=== PATIENT | male | born 1965 | race Caucasian/White ===

== ENCOUNTER 2017-06-17 13:04 | Inpatient (IN) ==
[2017-06-17] MEDS ORDERED: ADENOSINE 6 MG/2 ML VIAL ONE ×2 (13:18→13:26)
[2017-06-17] MEDS ORDERED: ADENOSINE 6 MG/2 ML VIAL IV STA ×2 (13:26→13:28)
[2017-06-17] MEDS ORDERED: DILTIAZEM 100 MG VIAL.ADD IV ONE (13:31)
[2017-06-17] MEDS: DILTIAZEM INJ 100 MG in SODIUM CHLORIDE 0.9% 100 ML IV SCH ×2 (13:31→23:37)
[2017-06-17] MEDS ORDERED: SODIUM CHLORIDE 0.9% 100 ML IV ONE (13:31)
[2017-06-17] MEDS ORDERED: DILTIAZEM 50 MG/10 ML VIAL IV ONE (13:31)
--- NOTE | 2017-06-17 13:42 | Emergency Department Note ---
Sergio Yoon Rolonda, am scribing for, and in the presence of, Francia Quiñones DO 13: 38. IIshmael Debra, DO, personally performed the services described in this documentation, ascribed by Danny Hill in my presence, and it is both accurate and complete [id number] . Arrival - Arrival Chief Complaint: Dizziness Stated Complaint: Dizziness ED Nursing Triage Note: pt went to the clinic at [facility] for a steriod shot for a cold that he has. pt had strep the first of the week. pt had an abnormal ekg done at the clinic. pt c/o dizziness when turning head. Mode of Arrival: Stretcher Limitations: No Limitations Source: Patient, Old Records Reviewed, RN Notes Reviewed - History of Present Illness HPI Narrative: Pt is a 52 y/o male who was presents to the ED via EMS for further evaluation of chest pain with an onset of hours ago. Pt has a PMHx of HTN. Pt states that he was Dx with streptococcal and bronchitis and he went to get Abx shot at the doctor. He states that he went again today as well but was unable to see the doctor. Pt states he was walking [place] the barn [place] his [place] and he had to stop in order to catch his breath. Pt states that he "felt like there was a knot in his chest". He confirms that he is currently taking Zoloft, Prilosec, and Metformin. During exam, pt's HR was 153. No other complaint/pain in ED. Onset (ago): hour(s) Consistency: constant Severity: moderate Severity scale (1-10): 4 Allergies/Adverse Reactions: Allergies Allergy/AdvReac Type Severity Reaction Status Date / Time No Known Allergies Allergy Unverified 06/17/17 13:13 Review of System - Review of System 12 point system: reviewed and no additional remarkable complaints except as stated - Review of System Constitutional: Absent: chills, fever Eyes: Absent: discharge Head/Ears/Nose/Throat: Absent: earache Respiratory: Absent: cough Cardiovascular: Present: chest pain Gastrointestinal: Absent: abdominal pain, nausea Genitourinary male: Absent: dysuria Musculoskeletal: Absent: arm pain, back pain Skin: Absent: rash Neurological: Absent: headache Psychiatric: Absent: anxiety Endocrine: Absent: cold intolerance Hematological/Lymphatic: Absent: easy bleeding Allergic/Immunologic: Absent: facial swelling Medical,Surgical,& Family Hx - Medical History Cardio: History of: Hypertension Endocrine: History of: Diabetes Mellitus (NIDDM) Renal: History of: Renal Problems (one kidney) Genitourinary: History of: Kidney Stones - Social History Smoking Status: Smoker, status unknown Frequency of Alcohol Use: Occasionally Type of Drug Use: None Exam Vital Signs: Vital Signs Temperature 97.2 F L 06/17/17 13:08 Pulse Rate 154 H 06/17/17 13:08 Respiratory Rate 18 06/17/17 13:08 Blood Pressure 126/96 06/17/17 13:08 O2 Sat by Pulse Oximetry 97 06/17/17 13:08 - General General appearance: alert, in no apparent distress - Head Head exam: Present: atraumatic, normocephalic - Eye Eye exam: Present: PERRL, EOMI - ENT ENT exam: Present: mucous membranes moist. Absent: mucous membranes dry - Neck Neck exam: Present: full ROM. Absent: tenderness - Chest Chest inspection: Present: symmetric chest wall rise. Absent: tenderness - Respiratory Respiratory exam: Present: normal lung sounds bilaterally. Absent: wheezes - Cardiovascular Cardiovascular exam: Present: normal rhythm, tachycardia - Abdominal Exam Abdominal exam: Present: soft, normal bowel sounds, other (obese). Absent: tenderness - Extremities Exam Extremities exam: Present: full ROM. Absent: tenderness - Back Exam Back exam: Present: full ROM. Absent: tenderness - Neurological Exam Neurological exam: Present: alert, oriented X3, CN II-XII intact - Psychiatric Psychiatric exam: Present: normal affect, normal mood - Skin Skin exam: Present: warm, dry, intact, normal color. Absent: rash Course Course Narrative: Spoke with Dr. Awan who wishes for patient to be admitted and accepts patient to telemetry floor. Will be given 0.25 of digoxin and subcu Lovenox. Results - Labs CBC & BMP: 06/17/17 13:14 06/17/17 13:14 Lab Results: I have reviewed the patients labs Labs: Laboratory Tests 06/17/17 06/17/17 06/17/17 13:14 13:14 13:14 WBC 10.7 RBC 5.48 Hgb 15.9 Hct 45.4 MCV 82.8 L Plt Count 172 INR 1.0 PT Patient/Control Mix 10.7 Circ Anticoag PTT 28.5 Sodium 136 Potassium 3.4 L Chloride 101 Carbon Dioxide 25 BUN 23 H GFR Calculation 88 Glucose 388 H AST 24 Alkaline Phosphatase 118 H Albumin 3.1 L Globulin 4.9 H Albumin/Globulin Ratio 0.6 L - EKG EKG results: interpreted by ERMD EKG shows: tachycardia, sinus rhythm - Diagnostic Findings Procedure: Chest x-ray: report reviewed by me (1. No acute cardiopulmonary pathology with underlying granuloma change.) Disposition Clinical Impression: Atrial fibrillation and flutter Case discussed with: patient, patient's family Disposition: Still a Patient Condition: Stable Time of Disposition: 14:57
[2017-06-17] MEDS ORDERED: DILTIAZEM 50 MG/10 ML VIAL IV STA (13:45)
[2017-06-17 13:51] LABS: Basophils % 0.4 % (0.0-0.8); Eosinophils % 0.2 % (0.00-10.9); Hematocrit 45.4 VOL% (42.0-52.0); Hemoglobin 15.9 GM/DL (14.0-18.0); Immature Granulocytes % 0.6 %; Immature Granulocytes Absolute 0.06 #; Lymphocytes # 2.5 10*3/uL (1.4-4.0); Lymphocytes % 23.6 % (21.2-54.2); Mean Corpuscular Hemoglobin 29 PG (27-34); Mean Corpuscular Volume 82.8 FL (87-102); Mean Platelet Volume 11.5 FL (9.6-12.0); Monocytes # 0.7 10*3/uL (0.11-0.8); Monocytes % 6.8 % (1.7-12.7); Neutrophils # 7.4 10*3/uL (1.4-7.4); Neutrophils % 68.4 % (38.7-73.9); Platelet Count 172 T/CUMM (130-400); Red Blood Count 5.48 MC/CUMM (3.8-5.5); Red Cell Distribution Width 13.1 % (9.3-17.3); White Blood Count 10.7 T/CUMM (4-12)
[2017-06-17 13:58] LABS: PT Patient Result 10.7 SECS; Partial Thromboplastin Time 28.5 SECS (0-40)
[2017-06-17 14:04] LABS: Alanine Aminotransferase 37 U/L (16-61); Albumin 3.1 G/DL (3.4-5.0); Alkaline Phosphatase 118 U/L (45-117); Aspartate Amino Transferase 24 U/L (0-37); Blood Urea Nitrogen 23 MG/DL (7-18); Calcium 9.6 MG/DL (8.5-10.1); Glucose 388 MG/DL (74-106); Potassium 3.4 MMOL/L (3.5-5.1); Sodium 136 MMOL/L (136-145); Troponin I Only 0.028 NG/ML (0.00-0.045)
--- NOTE | 2017-06-17 14:12 | XRay Report ---
Exam: XR chest 1V portable Date: 06/17/2017 1:43 PM Indication: Tachycardia Comparison: None Technical: 06/17/2017 Findings: Cardiac pad superimposed exam. The heart is normal in size. There is a granuloma in the left lateral chest. No obvious infiltrate or effusion. The mediastinum is intact Impression: 1. No acute cardiopulmonary pathology with underlying granuloma change. PROCEDURE INTERPRETED AT [facility] DEPARTMENT OF RADIOLOGY Final Report Signed by: Dr. Evan Dalton
[2017-06-17] MEDS ORDERED: DIGOXIN 0.5 MG/2 ML AMP IV STA (14:46)
[2017-06-17] MEDS ORDERED: ENOXAPARIN 100 MG/ML SYRINGE SUBCUT STA (14:58)
[2017-06-17] MEDS ORDERED: ENOXAPARIN 100 MG/ML SYRINGE SUBCUT ONE (15:02)
[2017-06-17] MEDS ORDERED: MAGNESIUM SULF RIDER 2 GM in PREMIX 1 EACH IV PRN (15:03)
[2017-06-17] MEDS ORDERED: DIGOXIN 0.5 MG/2 ML AMP ONE (15:03)
[2017-06-17] MEDS ORDERED: ZALEPLON 5 MG CAPSULE PO PRN (15:03)
[2017-06-17] MEDS ORDERED: MORPHINE 2 MG/1 ML SYRINGE IV PRN (15:03)
[2017-06-17] MEDS ORDERED: ACETAMINOPHEN 325 MG TABLET PO PRN (15:03)
[2017-06-17] MEDS ORDERED: ONDANSETRON 4 MG/2 ML VIAL IV PRN (15:03)
[2017-06-17] MEDS ORDERED: MAGNESIUM SULF RIDER 4 GM in PREMIX 1 EACH IV PRN (15:03)
[2017-06-17] MEDS ORDERED: ENOXAPARIN 40 MG/0.4 ML SYRINGE SUBCUT SCH (15:30)
[2017-06-17 16:40] LABS: Basophils % 0.3 % (0.0-0.8); Eosinophils % 0.3 % (0.00-10.9); Hematocrit 44.1 VOL% (42.0-52.0); Hemoglobin 15.5 GM/DL (14.0-18.0); Immature Granulocytes % 0.8 %; Immature Granulocytes Absolute 0.08 #; Lymphocytes # 2.4 10*3/uL (1.4-4.0); Lymphocytes % 25.6 % (21.2-54.2); Mean Corpuscular HGB Conc 35.1 GM/DL (32-36); Mean Corpuscular Hemoglobin 29 PG (27-34); Mean Corpuscular Volume 83.1 FL (87-102); Mean Platelet Volume 11.1 FL (9.6-12.0); Monocytes # 0.9 10*3/uL (0.11-0.8); Platelet Count 162 T/CUMM (130-400); Red Blood Count 5.31 MC/CUMM (3.8-5.5); Red Cell Distribution Width 13.3 % (9.3-17.3); White Blood Count 9.4 T/CUMM (4-12)
[2017-06-17] MEDS: SODIUM CHLORIDE 0.9% 1,000 ML IV SCH (16:54)
[2017-06-17 17:06] LABS: Troponin I Only 0.022 NG/ML (0.00-0.045)
[2017-06-17 17:13] LABS: Albumin 3.1 G/DL (3.4-5.0); Bilirubin,Total 0.4 MG/DL (0.2-1.0); Calcium 8.6 MG/DL (8.5-10.1); Magnesium 1.7 MG/DL (1.8-2.4); Osmolality,Calculated 286.8 MOS/KG (273-304); Potassium 3.6 MMOL/L (3.5-5.1); Thyroid Stimulating Hormone 1.86 uIU/ml (0.358-3.74); Total Protein 6.8 G/DL (6.4-8.3)
[2017-06-17] MEDS ORDERED: DIGOXIN 0.5 MG/2 ML AMP IV ONE (18:22)
[2017-06-17 18:24] LABS: Troponin I Only 0.018 NG/ML (0.00-0.045)
[2017-06-17] MEDS ORDERED: MAGNESIUM SULF RIDER 2 GM in PREMIX 1 EACH IV ONE (19:57)
--- NOTE | 2017-06-17 20:04 | Cardiology History & Physical ---
Assessment and Plan (1) Atrial fibrillation and flutter Status: Acute Current Visit: Yes (2) Hypertension Status: Chronic Current Visit: Yes (3) Hyperlipidemia Status: Chronic Current Visit: Yes (4) Diabetes mellitus Status: Chronic Current Visit: Yes History of Present Illness Chief complaint: Arrhythmia History of present illness: Radiology Practitioner Assistant: None Mr. Hernandez is a 52 year old male without a prior cardiac history, with risk factors significant for hypertension, hyperlipidemia, diabetes mellitus, family history of premature coronary artery disease, and tobacco use. The patient has been ill for approximately 1 week with "an upper respiratory infection", strep throat, cough productive of green sputum. He went to primary care provider on Monday (6 days ago) and received a steroid shot in addition to Zithromax. He went today to get a "boost" and was discovered to be extremely tachycardic, and was referred to the emergency room. He did not have awareness of tachycardia or palpitations. He has had some dyspnea this week. He denies any chest discomfort, lower extremity edema, orthopnea, paroxysmal nocturnal dyspnea. He has no history of arrhythmias. He does have a history of kidney stones. He does not have any recent melena, bright red blood per rectum, although he considers himself a "free bleeder". He has had some chills at home. He has been diagnosed with atrial fibrillation per ECG. He continues to be tachycardic despite a Cardizem drip. He has temporary reduction in his heart rate with vagal maneuvers and carotid massage during my exam. However, his tachycardia quickly rebounds. He has been a previous 2 pack a day smoker and has been working on "quitting", and was down to at least one pack. He has not smoked in 2 days because he has been too short of breath to smoke. Impression and plan: 1. Atrial fibrillation with rapid ventricular response-this really may be more of an atrial flutter and it has been difficult to control. I am going to add beta-za and we have been giving him digoxin. We may need to consider JERI and cardioversion if we cannot control him. He is currently asymptomatic and hemodynamically stable. We are going to anticoagulate him as well. 2. Hypertension-I am going to hold his ARB in favor of using rate controlling agents. 3. Diabetes mellitus-chronic. 4. Hyperlipidemia-chronic. Home Medications Medication Instructions Recorded Confirmed Type Atenolol 25 mg PO DAILY 06/17/17 06/17/17 History Metformin HCl 1,000 mg PO BID 06/17/17 06/17/17 History Olmesartan Medoxomil [Benicar] 40 mg PO DAILY 06/17/17 06/17/17 History Omeprazole Magnesium [Prilosec Otc] 20 mg PO DAILY 06/17/17 06/17/17 History Sertraline [Zoloft] 75 mg PO DAILY 06/17/17 06/17/17 History Allergies Allergy/AdvReac Type Severity Reaction Status Date / Time No Known Allergies Allergy Unverified 06/17/17 13:13 12 point system: reviewed and no additional remarkable complaints except as stated Medical,Surgical,& Family Hx - Medical History Cardio: History of: Hypertension Endocrine: History of: Diabetes Mellitus (NIDDM), Dyslipidemia Renal: History of: Renal Problems (one kidney) Genitourinary: History of: Kidney Stones - Social History Smoking Status: Current every day smoker Frequency of Alcohol Use: Frequently Type of Drug Use: None Marital Status: Lives With:: Spouse Functional capacity: independent ambulation Cardiology Physical Exam - Constitutional Vitals: Vital Signs Temp Pulse Resp BP Pulse Ox 97.8 F 158 H 20 142/94 99 06/17/17 15:38 06/17/17 18:34 06/17/17 15:38 06/17/17 16:52 06/17/17 15:38 Intake and Output 06/17/17 06/17/17 06/17/17 07:59 15:59 23:59 Intake Total 520 / 520 Balance 520 / 520 Intake: IV Cardizem Inj 100 mg In Ns 100 ml @ 5 MG/HR 5 mls/ hr IV TITRATE JANIE Rx#: [id number] Intake - Additional IV 500 / 500 Volume (mLs) Left Forearm 500 / 500 Other: Weight 113.398 kg Patient Weight 06/17/17 23:59 Weight 113.398 kg Exam: General appearance: normal weight, no acute distress - Head Head exam: Present: normal inspection, normocephalic, atraumatic. Absent: hematoma, laceration - Eye Eye exam: Present: EOMI. Absent: conjunctival injection, nystagmus, periorbital swelling, scleral icterus, laceration to eyelids Pupils: Present: PERRL. Absent: constricted, dilated, fixed, irregular, unequal - ENT ENT exam: Present: normal exam, normal external ear exam - Neck Neck exam: Present: normal inspection. Absent: lymphadenopathy, meningismus, tenderness, thyromegaly - Respiratory Respiratory exam: Present: clear to auscultation bilaterally. Absent: accessory muscle use, chest wall tenderness - Cardiovascular Cardiovascular exam: Present: Tachycardic with an irregularly irregular rate and rhythm. Absent: carotid bruit, gallop, JVD, rubs - GI/Abdominal GI/Abdominal exam: Present: normal bowel sounds, soft. Absent: distended, firm , guarding, hernia, mass, tenderness, rebound. - Extremities Exam Extremities exam: Present: normal inspection, normal capillary refill. Absent: calf tenderness, edema - Back Exam Back exam: Present: normal inspection. Absent: muscle spasm, vertebral tenderness - Neurological Exam Neurological exam: Present: alert, oriented X3, grossly intact without resting or intention tremor - Psychiatric Psychiatric exam: Present: normal affect, normal mood - Skin Skin exam: Present: normal color, warm, dry, intact. Absent: cyanosis, diaphoretic, rash, urticaria Result/EKG - Labs CBC & BMP: 06/17/17 16:17 06/17/17 16:17 Lab Results: I have reviewed the past 24 hour labs Labs: Laboratory Results - last 24 hr 06/17/17 06/17/17 06/17/17 13:14 13:14 13:14 WBC 10.7 RBC 5.48 Hgb 15.9 Hct 45.4 MCV 82.8 L MCH 29 MCHC 35.0 RDW 13.1 Plt Count 172 MPV 11.5 Neut % (Auto) 68.4 Lymph % (Auto) 23.6 [place] % (Auto) 6.8 Eos % (Auto) 0.2 Baso % (Auto) 0.4 Neut # (Auto) 7.4 Lymph # (Auto) 2.5 [place] # (Auto) 0.7 Eos # (Auto) 0.0 Baso # (Auto) 0.0 Immature Gran % 0.6 Nucleated RBC % 0.0 Immature Gran # 0.06 Nucleated RBCs # 0.00 Immature Plt Fraction 0.0 INR PT Patient/Control Mix Circ Anticoag PTT Sodium 136 Potassium 3.4 L Chloride 101 Carbon Dioxide 25 Anion Gap 13.4 BUN 23 H Creatinine 1.20 GFR Calculation 88 BUN/Creatinine Ratio 19.00 Glucose 388 H Calculated Osmolality 291.0 Calcium 9.6 Magnesium Total Bilirubin 0.40 AST 24 ALT 37 Alkaline Phosphatase 118 H Total Creatine Kinase 106 CK-MB (CK-2) 1.7 Troponin I 0.028 B-Natriuretic Peptide 300 H Total Protein 8.0 Albumin 3.1 L Globulin 4.9 H Albumin/Globulin Ratio 0.6 L TSH 3rd Generation 06/17/17 06/17/17 06/17/17 13:14 16:17 16:17 WBC 9.4 RBC 5.31 Hgb 15.5 Hct 44.1 MCV 83.1 L MCH 29 MCHC 35.1 RDW 13.3 Plt Count 162 MPV 11.1 Neut % (Auto) 64.0 Lymph % (Auto) 25.6 [place] % (Auto) 9.0 Eos % (Auto) 0.3 Baso % (Auto) 0.3 Neut # (Auto) 6.0 Lymph # (Auto) 2.4 [place] # (Auto) 0.9 H Eos # (Auto) 0.0 Baso # (Auto) 0.0 Immature Gran % 0.8 Nucleated RBC % 0.0 Immature Gran # 0.08 Nucleated RBCs # 0.00 Immature Plt Fraction 0.0 INR 1.0 PT Patient/Control Mix 10.7 Circ Anticoag PTT 28.5 Sodium 137 Potassium 3.6 Chloride 101 Carbon Dioxide 30 Anion Gap 9.6 BUN 23 H Creatinine 1.00 GFR Calculation 109 BUN/Creatinine Ratio 23.00 H Glucose 282 H Calculated Osmolality 286.8 Calcium 8.6 Magnesium 1.7 L Total Bilirubin 0.40 AST 18 ALT 36 Alkaline Phosphatase 120 H Total Creatine Kinase CK-MB (CK-2) Troponin I B-Natriuretic Peptide Total Protein 6.8 Albumin 3.1 L Globulin 3.7 H Albumin/Globulin Ratio 0.8 L TSH 3rd Generation 1.860 06/17/17 06/17/17 16:17 17:41 WBC RBC Hgb Hct MCV MCH MCHC RDW Plt Count MPV Neut % (Auto) Lymph % (Auto) [place] % (Auto) Eos % (Auto) Baso % (Auto) Neut # (Auto) Lymph # (Auto) [place] # (Auto) Eos # (Auto) Baso # (Auto) Immature Gran % Nucleated RBC % Immature Gran # Nucleated RBCs # Immature Plt Fraction INR PT Patient/Control Mix Circ Anticoag PTT Sodium Potassium Chloride Carbon Dioxide Anion Gap BUN Creatinine GFR Calculation BUN/Creatinine Ratio Glucose Calculated Osmolality Calcium Magnesium Total Bilirubin AST ALT Alkaline Phosphatase Total Creatine Kinase 88 89 CK-MB (CK-2) 1.5 1.3 Troponin I 0.022 0.018 B-Natriuretic Peptide Total Protein Albumin Globulin Albumin/Globulin Ratio TSH 3rd Generation - Diagnostic Findings Procedure: Chest x-ray: report reviewed by me - EKG EKG results: interpreted by me EKG shows: atrial fibrillation
[2017-06-17 21:41] LABS: Troponin I Only 0.018 NG/ML (0.00-0.045)
[2017-06-17] MEDS: metFORMIN 500 MG TABLET PO SCH (23:04)
[2017-06-17] MEDS: METOPROLOL TARTRATE 25 MG TABLET PO SCH (23:05)
[2017-06-17] MEDS: INSULIN REGULAR 100 UNIT/ML SUBCUT SCH (23:19)
[2017-06-18] MEDS: SODIUM CHLORIDE 0.9% 1,000 ML IV SCH ×4 (01:15→21:50)
[2017-06-18] MEDS: METOPROLOL TARTRATE 25 MG TABLET PO SCH ×3 (01:16→12:15)
[2017-06-18] MEDS: DILTIAZEM INJ 100 MG in SODIUM CHLORIDE 0.9% 100 ML IV SCH ×3 (03:22→22:00)
[2017-06-18 05:20] LABS: Basophils % 0.5 % (0.0-0.8); Eosinophils % 0.6 % (0.00-10.9); Hematocrit 43.2 VOL% (42.0-52.0); Hemoglobin 14.8 GM/DL (14.0-18.0); Immature Granulocytes % 1.1 %; Immature Granulocytes Absolute 0.07 #; Lymphocytes # 2.3 10*3/uL (1.4-4.0); Lymphocytes % 34.5 % (21.2-54.2); Mean Corpuscular HGB Conc 34.3 GM/DL (32-36); Mean Corpuscular Hemoglobin 29 PG (27-34); Mean Corpuscular Volume 84.9 FL (87-102); Mean Platelet Volume 10.9 FL (9.6-12.0); Monocytes # 0.7 10*3/uL (0.11-0.8); Monocytes % 10.5 % (1.7-12.7); Neutrophils # 3.5 10*3/uL (1.4-7.4); Neutrophils % 52.8 % (38.7-73.9); Platelet Count 149 T/CUMM (130-400); Red Blood Count 5.09 MC/CUMM (3.8-5.5); Red Cell Distribution Width 13.2 % (9.3-17.3); White Blood Count 6.6 T/CUMM (4-12)
[2017-06-18 05:44] LABS: Calcium 8.3 MG/DL (8.5-10.1); Magnesium 2.2 MG/DL (1.8-2.4); Osmolality,Calculated 293.7 MOS/KG (273-304); Potassium 4.2 MMOL/L (3.5-5.1)
[2017-06-18] MEDS: INSULIN REGULAR 100 UNIT/ML SUBCUT SCH ×4 (08:43→21:50)
[2017-06-18] MEDS: SERTRALINE 50 MG TABLET PO SCH (08:44)
[2017-06-18] MEDS: metFORMIN 500 MG TABLET PO SCH ×2 (08:44→21:49)
[2017-06-18] MEDS: PANTOPRAZOLE 40 MG TABLET PO SCH (08:44)
--- NOTE | 2017-06-18 09:13 | XRay Report ---
Exam: XR chest 1V portable Date: 06/18/2017 4:00 AM Indication: Shortness of breath Comparison: 06/17/2017 Technical: AP Findings: External cardiac leads are present. Cardiac pads are present. The heart, lungs, mediastinum and bony structures are intact. Small granuloma left lung Impression: 1. No acute cardiopulmonary pathology. PROCEDURE INTERPRETED AT [facility] DEPARTMENT OF RADIOLOGY Final Report Signed by: Dr. Evan Dalton
--- NOTE | 2017-06-18 10:02 | EKG Report ---
Stationary ECG Study [facility] ER Test Date: 06/17/2017 1:12:12 PM Pat Name: JERSEY FLOWERS Department: Room: 280 Gender: M [employer] Agent: : 1965 Requested by: Francia Quiñones Order Number: [id number] Reading MD: MARTHA KRAMER Intervals [place] Rate: 151 P: 999 MN: 0 QRS: 55 QRSD: 86 T: 172 QT: 251 QTc: 337 Interpretive Statements ATRIAL FLUTTER/TACHYCARDIA WITH RAPID VENTRICULAR RESPONSE ST DEVIATION AND MODERATE T-WAVE ABNORMALITY, CONSIDER LATERAL ISCHEMIA Electronically Signed On 06-19-17 11:20:28 CDT by MARTHA KRAMER [email or web address]
--- NOTE | 2017-06-18 10:13 | EKG Report ---
Stationary ECG Study [facility] ER Test Date: 06/17/2017 1:28:39 PM Pat Name: JERSEY FLOWERS Department: Room: 280 Gender: M Manager Food: : 1965 Requested by: Francia Quiñones Order Number: [id number] Reading MD: MARTHA KRAMER Intervals [place] Rate: 152 P: 999 ME: 0 QRS: 51 QRSD: 90 T: 180 QT: 250 QTc: 336 Interpretive Statements ATRIAL FLUTTER/TACHYCARDIA WITH RAPID VENTRICULAR RESPONSE ST DEVIATION AND MODERATE T-WAVE ABNORMALITY, CONSIDER LATERAL ISCHEMIA Electronically Signed On 06-19-17 11:20:35 CDT by MARTHA KRAMER [email or web address]
[2017-06-18] MEDS ORDERED: AMIODARONE INJ 450 MG in DEXTROSE 5% 241 ML IV SCH (11:00)
[2017-06-18] MEDS: DIGOXIN 0.125 MG TABLET PO SCH (12:15)
--- NOTE | 2017-06-18 13:30 | Cardiology Progress Note ---
Assessment and Plan (1) Atrial fibrillation and flutter Status: Acute Current Visit: Yes (2) Hypertension Status: Chronic Current Visit: Yes (3) Hyperlipidemia Status: Chronic Current Visit: Yes (4) Diabetes mellitus Status: Chronic Current Visit: Yes (5) Bronchitis Status: Acute Current Visit: Yes Cardiology - PN: Subj Interval history: Embroidery Patternmaker: None Summary: Mr. Hernandez is a 52 year old male without a prior cardiac history, with risk factors significant for hypertension, hyperlipidemia, diabetes mellitus, family history of premature coronary artery disease, and tobacco use. The patient has been ill for approximately 1 week with "an upper respiratory infection", strep throat, cough productive of green sputum. He went to primary care provider on Monday (6 days ago) and received a steroid shot in addition to Zithromax. He went today to get a "boost" and was discovered to be extremely tachycardic, and was referred to the emergency room. He did not have awareness of tachycardia or palpitations. He has had some dyspnea this week. He denies any chest discomfort, lower extremity edema, orthopnea, paroxysmal nocturnal dyspnea. He has no history of arrhythmias. He does have a history of kidney stones. He does not have any recent melena, bright red blood per rectum, although he considers himself a "free bleeder". He has had some chills at home. He was admitted with atrial fibrillation/atrial flutter. He has also had elevated blood sugars. June 18, 2017: He remains tachycardic in atrial flutter most of the night, but this morning converted to sinus rhythm. He has since converted back into atrial flutter with a rapid ventricular response. His cough has returned, his breathing is worsening. On physical exam he has some wheezing. His blood sugars continue to be uncontrolled. Impression and plan: 1. Atrial fibrillation with rapid ventricular response-this really may be more of an atrial flutter and it has been difficult to control. Because he is flipped into sinus rhythm and now back into atrial flutter, I am going to put him on an amiodarone drip. He may need to undergo JERI and possible cardioversion tomorrow depending on his evolution. 2. Hypertension-I am going to hold his ARB in favor of using rate controlling agents. 3. Diabetes mellitus-chronic. He is currently uncontrolled. I am going to consult the hospitalist service to assist with his pulmonary condition and diabetes mellitus. We will check a hemoglobin A1c. 4. Hyperlipidemia-chronic. Triglycerides are uncontrolled may be related to his uncontrolled blood sugars as well. We will start treatment for this. 5. Bronchitis-he is now wheezing today, and his cough is returned. I am going to recheck his chest x-ray, and add some nebulizer treatments. We will need to use Xopenex. I am trying to avoid steroids since this may have precipitated his A. fib and uncontrolled blood sugars. We will ask the hospitalist to assist with this management. We will go ahead and start some Levaquin to expand his antibiotic coverage. Exam (Progress Note) - Constitutional Vitals: Period Temp Pulse Resp BP Sys/Murray Pulse Ox Last 24 Hr 96.6 F-98.5 F 16-163 16-22 92-142/71-94 94-99 Exam: General appearance: normal weight, no acute distress - Head Head exam: Present: normal inspection, normocephalic, atraumatic. Absent: hematoma, laceration - Eye Eye exam: Present: EOMI. Absent: conjunctival injection, nystagmus, periorbital swelling, scleral icterus, laceration to eyelids Pupils: Present: PERRL. Absent: constricted, dilated, fixed, irregular, unequal - ENT ENT exam: Present: normal exam, normal external ear exam - Neck Neck exam: Present: normal inspection. Absent: lymphadenopathy, meningismus, tenderness, thyromegaly - Respiratory Respiratory exam: Present: Wheezing and decreased air movement bilaterally. Absent: accessory muscle use, chest wall tenderness - Cardiovascular Cardiovascular exam: Present: Tachycardic rate and irregularly irregular rhythm. Absent: carotid bruit, gallop, JVD, rubs - GI/Abdominal GI/Abdominal exam: Present: normal bowel sounds, soft. Absent: distended, firm , guarding, hernia, mass, tenderness, rebound. - Extremities Exam Extremities exam: Present: normal inspection, normal capillary refill. Absent: calf tenderness, edema - Back Exam Back exam: Present: normal inspection. Absent: muscle spasm, vertebral tenderness - Neurological Exam Neurological exam: Present: alert, oriented X3, grossly intact without resting or intention tremor - Psychiatric Psychiatric exam: Present: normal affect, normal mood - Skin Skin exam: Present: normal color, warm, dry, intact. Absent: cyanosis, diaphoretic, rash, urticaria Result/EKG - Labs CBC & BMP: 06/18/17 04:46 06/18/17 04:46 Lab Results: I have reviewed the past 24 hour labs Labs: Laboratory Results - last 24 hr 06/17/17 06/17/17 06/17/17 13:14 13:14 13:14 WBC 10.7 RBC 5.48 Hgb 15.9 Hct 45.4 MCV 82.8 L MCH 29 MCHC 35.0 RDW 13.1 Plt Count 172 MPV 11.5 Neut % (Auto) 68.4 Lymph % (Auto) 23.6 Vance % (Auto) 6.8 Eos % (Auto) 0.2 Baso % (Auto) 0.4 Neut # (Auto) 7.4 Lymph # (Auto) 2.5 Vance # (Auto) 0.7 Eos # (Auto) 0.0 Baso # (Auto) 0.0 Immature Gran % 0.6 Nucleated RBC % 0.0 Immature Gran # 0.06 Nucleated RBCs # 0.00 Immature Plt Fraction 0.0 INR PT Patient/Control Mix Circ Anticoag PTT Sodium 136 Potassium 3.4 L Chloride 101 Carbon Dioxide 25 Anion Gap 13.4 BUN 23 H Creatinine 1.20 GFR Calculation 88 BUN/Creatinine Ratio 19.00 Glucose 388 H POC Glucose Calculated Osmolality 291.0 Calcium 9.6 Magnesium Total Bilirubin 0.40 AST 24 ALT 37 Alkaline Phosphatase 118 H Total Creatine Kinase 106 CK-MB (CK-2) 1.7 Troponin I 0.028 B-Natriuretic Peptide 300 H Total Protein 8.0 Albumin 3.1 L Globulin 4.9 H Albumin/Globulin Ratio 0.6 L Triglycerides Cholesterol LDL Cholesterol VLDL Cholesterol HDL Cholesterol Heart Disease Risk Ratio TSH 3rd Generation 06/17/17 06/17/17 06/17/17 13:14 16:17 16:17 WBC 9.4 RBC 5.31 Hgb 15.5 Hct 44.1 MCV 83.1 L MCH 29 MCHC 35.1 RDW 13.3 Plt Count 162 MPV 11.1 Neut % (Auto) 64.0 Lymph % (Auto) 25.6 Vance % (Auto) 9.0 Eos % (Auto) 0.3 Baso % (Auto) 0.3 Neut # (Auto) 6.0 Lymph # (Auto) 2.4 Vance # (Auto) 0.9 H Eos # (Auto) 0.0 Baso # (Auto) 0.0 Immature Gran % 0.8 Nucleated RBC % 0.0 Immature Gran # 0.08 Nucleated RBCs # 0.00 Immature Plt Fraction 0.0 INR 1.0 PT Patient/Control Mix 10.7 Circ Anticoag PTT 28.5 Sodium 137 Potassium 3.6 Chloride 101 Carbon Dioxide 30 Anion Gap 9.6 BUN 23 H Creatinine 1.00 GFR Calculation 109 BUN/Creatinine Ratio 23.00 H Glucose 282 H POC Glucose Calculated Osmolality 286.8 Calcium 8.6 Magnesium 1.7 L Total Bilirubin 0.40 AST 18 ALT 36 Alkaline Phosphatase 120 H Total Creatine Kinase CK-MB (CK-2) Troponin I B-Natriuretic Peptide Total Protein 6.8 Albumin 3.1 L Globulin 3.7 H Albumin/Globulin Ratio 0.8 L Triglycerides Cholesterol LDL Cholesterol VLDL Cholesterol HDL Cholesterol Heart Disease Risk Ratio TSH 3rd Generation 1.860 06/17/17 06/17/17 06/17/17 16:17 17:41 21:06 WBC RBC Hgb Hct MCV MCH MCHC RDW Plt Count MPV Neut % (Auto) Lymph % (Auto) Vance % (Auto) Eos % (Auto) Baso % (Auto) Neut # (Auto) Lymph # (Auto) Vance # (Auto) Eos # (Auto) Baso # (Auto) Immature Gran % Nucleated RBC % Immature Gran # Nucleated RBCs # Immature Plt Fraction INR PT Patient/Control Mix Circ Anticoag PTT Sodium Potassium Chloride Carbon Dioxide Anion Gap BUN Creatinine GFR Calculation BUN/Creatinine Ratio Glucose POC Glucose Calculated Osmolality Calcium Magnesium Total Bilirubin AST ALT Alkaline Phosphatase Total Creatine Kinase 88 89 86 CK-MB (CK-2) 1.5 1.3 < 1.0 Troponin I 0.022 0.018 0.018 B-Natriuretic Peptide Total Protein Albumin Globulin Albumin/Globulin Ratio Triglycerides Cholesterol LDL Cholesterol VLDL Cholesterol HDL Cholesterol Heart Disease Risk Ratio TSH 3rd Generation 06/18/17 06/18/17 06/18/17 04:46 04:46 08:14 WBC 6.6 RBC 5.09 Hgb 14.8 Hct 43.2 MCV 84.9 L MCH 29 MCHC 34.3 RDW 13.2 Plt Count 149 MPV 10.9 Neut % (Auto) 52.8 Lymph % (Auto) 34.5 Vance % (Auto) 10.5 Eos % (Auto) 0.6 Baso % (Auto) 0.5 Neut # (Auto) 3.5 Lymph # (Auto) 2.3 Vance # (Auto) 0.7 Eos # (Auto) 0.0 Baso # (Auto) 0.0 Immature Gran % 1.1 Nucleated RBC % 0.0 Immature Gran # 0.07 Nucleated RBCs # 0.00 Immature Plt Fraction 0.0 INR PT Patient/Control Mix Circ Anticoag PTT Sodium 138 Potassium 4.2 Chloride 102 Carbon Dioxide 31 Anion Gap 9.2 BUN 18 Creatinine 1.10 GFR Calculation 97 BUN/Creatinine Ratio 16.00 Glucose 397 H POC Glucose 293 H Calculated Osmolality 293.7 Calcium 8.3 L Magnesium 2.2 Total Bilirubin AST ALT Alkaline Phosphatase Total Creatine Kinase CK-MB (CK-2) Troponin I B-Natriuretic Peptide Total Protein Albumin Globulin Albumin/Globulin Ratio Triglycerides 1255 H Cholesterol 216 H LDL Cholesterol 93.0 VLDL Cholesterol 251.0 HDL Cholesterol 24 L Heart Disease Risk Ratio 9.00 TSH 3rd Generation 06/18/17 11:54 WBC RBC Hgb Hct MCV MCH MCHC RDW Plt Count MPV Neut % (Auto) Lymph % (Auto) Vance % (Auto) Eos % (Auto) Baso % (Auto) Neut # (Auto) Lymph # (Auto) Vance # (Auto) Eos # (Auto) Baso # (Auto) Immature Gran % Nucleated RBC % Immature Gran # Nucleated RBCs # Immature Plt Fraction INR PT Patient/Control Mix Circ Anticoag PTT Sodium Potassium Chloride Carbon Dioxide Anion Gap BUN Creatinine GFR Calculation BUN/Creatinine Ratio Glucose POC Glucose 281 H Calculated Osmolality Calcium Magnesium Total Bilirubin AST ALT Alkaline Phosphatase Total Creatine Kinase CK-MB (CK-2) Troponin I B-Natriuretic Peptide Total Protein Albumin Globulin Albumin/Globulin Ratio Triglycerides Cholesterol LDL Cholesterol VLDL Cholesterol HDL Cholesterol Heart Disease Risk Ratio TSH 3rd Generation
[2017-06-18] MEDS ORDERED: ALBUTEROL 1.25 MG/3 ML NEB RESP TX PRN (13:33)
[2017-06-18] MEDS: LEVOFLOXACIN 500 MG TABLET PO SCH (13:53)
--- NOTE | 2017-06-18 14:58 | XRay Report ---
Exam: XR chest 2V Date: 06/18/2017 1:32 PM Indication: Wheezing, cough Comparison: 06/18/2017 Technical: PA lateral Findings: External cardiac leads are present. The heart is normal in size. Scattered granuloma change present along chu bilaterally partially calcified. No obvious infiltrate or effusion. Calcification of the costochondral cartilage changes present. No obvious effusions or pneumothorax. Impression: 1. No acute cardiopulmonary pathology 2. Underlying granuloma changes PROCEDURE INTERPRETED AT [facility] DEPARTMENT OF RADIOLOGY Final Report Signed by: Dr. Evan Dalton
--- NOTE | 2017-06-18 16:44 | ECHO Report ---
Clark Hernandez Exam Date: 06/18/2017 10:51 Referring Physician: Technologist: Clara Sims AMOR Age: 52 Ht (in): 67 Wt (lb): 250 Gender: M Exam Location: [facility] Echo Indications: Atrial flutter, Atrial fibrillation, Essential (primary) hypertension, Hyperlipidemia, unspecified, NIDDM, Bronchitis BP: 128 / 82 HR: 140 Rhythm: atrial fib/flutter Technical Quality: Technically difficult study IMPRESSIONS The image quality the study is severely limited. It is very difficult to gauge the systolic function, but overall is suspected to be probably normal, or at worst mild to moderately decreased. Chamber sizes are grossly normal, although the left ventricle may be mildly dilated and there is borderline left ventricular hypertrophy. None of the valves are well seen, but there is no significant pathology detected by Doppler. MEASUREMENTS (Male / Female) Normal Values 2D ECHO LV Diastolic Diameter PLAX 5.8 cm 4.2 - 5.9 / 3.9 - 5.3 cm LV Systolic Diameter PLAX 4.2 cm LV Fractional Shortening PLAX 27.5 % IVS Diastolic Thickness 1.2 cm 0.6 - 1.0 / 0.6 - 0.9 cm LVPW Diastolic Thickness 1.1 cm 0.6 - 1.0 / 0.6 - 0.9 cm RV Internal Dim ED PLAX 2.8 cm Aortic Root Diameter 4.0 cm LA Systolic Diameter LX 3.4 cm 3.0 - 4.0 / 2.7 - 3.8 cm FINDINGS Left Ventricle Normal left ventricular cavity size. Mild left ventricular hypertrophy. Left ventricular ejection fraction is difficult to assess due to very poor endocardial resolution. Diastolic parameters cannot be well assessed due to underlying arrhythmia. Right Ventricle The right ventricle is normal in size and function. Right Atrium The right atrium is normal in size. Left Atrium The left atrium is normal in size. Mitral Valve Not well seen. There is no mitral regurgitation. Aortic Valve Not well seen. There is no aortic regurgitation. Tricuspid Valve Not well seen. Pulmonary artery systolic pressure is normal. Pulmonic Valve Not well seen. There is no pulmonic regurgitation. Pericardium Normal pericardium without effusion. Aorta Normal ascending aorta dimension. Anika Awan MD (Electronically Signed) Final Date: 18 June 2017 16:43
[2017-06-18] MEDS: APIXABAN 5 MG TABLET PO SCH ×2 (16:52→21:50)
[2017-06-18] MEDS: GEMFIBROZIL 600 MG TABLET PO SCH (16:52)
[2017-06-18] MEDS: BENZONATATE 100 MG CAPSULE PO SCH ×2 (16:57→21:49)
[2017-06-18] MEDS: AMIODARONE INJ 450 MG in DEXTROSE 5% 241 ML IV SCH (17:55)
[2017-06-18] MEDS: OMEGA 3 ACID ETHYL ESTERS 1 GM CAPSULE PO SCH (21:50)
[2017-06-19] MEDS ORDERED: METOPROLOL TARTRATE 5 MG/5 ML VIAL IV ONE (00:24)
[2017-06-19] MEDS ORDERED: ALUMINUM/MAGNES/SIMETH MAX STR 30 ML UDCUP PO PRN (00:25)
[2017-06-19] MEDS: SODIUM CHLORIDE 0.9% 1,000 ML IV SCH ×4 (03:09→16:56)
[2017-06-19] MEDS: DILTIAZEM INJ 100 MG in SODIUM CHLORIDE 0.9% 100 ML IV SCH ×3 (03:25→15:05)
[2017-06-19 05:23] LABS: Basophils % 0.2 % (0.0-0.8); Eosinophils # 0.1 10*3/uL (0.0-0.87); Eosinophils % 1.1 % (0.00-10.9); Hematocrit 39.2 VOL% (42.0-52.0); Hemoglobin 13.1 GM/DL (14.0-18.0); Immature Granulocytes % 1.1 %; Immature Granulocytes Absolute 0.06 #; Lymphocytes % 36.1 % (21.2-54.2); Mean Corpuscular HGB Conc 33.4 GM/DL (32-36); Mean Corpuscular Hemoglobin 29 PG (27-34); Mean Corpuscular Volume 86.2 FL (87-102); Monocytes # 0.5 10*3/uL (0.11-0.8); Monocytes % 9.9 % (1.7-12.7); Neutrophils # 2.8 10*3/uL (1.4-7.4); Neutrophils % 51.6 % (38.7-73.9); Platelet Count 137 T/CUMM (130-400); Red Blood Count 4.55 MC/CUMM (3.8-5.5); Red Cell Distribution Width 13.2 % (9.3-17.3); White Blood Count 5.5 T/CUMM (4-12)
[2017-06-19 05:54] LABS: Calcium 8.3 MG/DL (8.5-10.1); Magnesium 1.7 MG/DL (1.8-2.4); Osmolality,Calculated 292.1 MOS/KG (273-304); Potassium 3.7 MMOL/L (3.5-5.1)
[2017-06-19] MEDS: GEMFIBROZIL 600 MG TABLET PO SCH ×3 (08:06→17:00)
--- NOTE | 2017-06-19 09:04 | Hospitalist Consult Note ---
<Fawad Hong - Last Filed: 06/19/17 08:52> Assessment and Plan (1) Atrial fibrillation and flutter Status: Acute Assessment and plan: Rate still uncontrolled. Patient has a magnesium and amiodarone drip. Cardiology is managing. Current Visit: Yes (2) Hypertension Status: Chronic Assessment and plan: BP slightly elevated today. Will defer to cardiology for continued management. Current Visit: Yes (3) Diabetes mellitus Status: Chronic Assessment and plan: Uncontrolled. Will change sliding scale insulin to Lispro at a higher dose. Consider adding a basal insulin to cover a longer time period. Continue Accu- cheks ACHS. Order Hgb A1c. Current Visit: Yes (4) Bronchitis Status: Acute Assessment and plan: Continue Levaquin 500 po daily. Continue breathing treatments as scheduled. Avoid steroids in light of his atrial fibrillation. Current Visit: Yes (5) Hyperlipidemia Status: Chronic Current Visit: Yes History of Present Illness - Data of Consult Patient: new to practice Requesting Physician: Anika Awan - Consult Narrative Reason for consult: Uncontrolled diabetes, Bronchitis History of present illness: Mr. Hernandez is a 52 year old white male with a past medical history significant for atrial fibrillation with RVR, hypertension, hyperlipidemia, and diabetes mellitus who presented to the ED on Monday via EMS from his PCP for further evaluation of chest pain. Patient was admitted to the cardiology service with atrial fibrillation with RVR. We will consulted by Dr. Awan, swage tender , to assist with management of his uncontrolled diabetes as well as potential bronchitis. On exam, the patient tells me that he does have a history of diabetes and was initially diagnosed approximately 4 years ago. He states that his diabetes was better managed prior to starting metformin and insulin per a nurse practitioner that he no longer sees. He also states that he has actively reduced his weight from 299 down to 256 now. Patient continues to take metformin daily as well as regular insulin with little control of his diabetes mellitus. The patient does not recall his last hemoglobin A1c level. We will check his hemoglobin now. At the time of my exam, patient's POC glucose is 299 serum glucose is 265. He is currently on sliding scale insulin and continues his home dose of metformin. In addition to the diabetic management, we will consulted to assist with suspected bronchitis. The patient states that he was seen at an urgent care clinic in [place] on Monday and was diagnosed with "a touch of bronchitis" . He was given a Z-Faheem, Rocephin and Decadron. He returned to the urgent care clinic on Monday and he experienced some chest pain and was then transferred to [facility] for further evaluation. Chest x-ray shows no cardiopulmonary process though patient does have some evidence of granulomatous disease. Patient confirms a history of tobacco use reporting smoking 2 packs per day for several years. His , who is at bedside, states that the patient has recently cut back to only 1 pack per day. Patient has not received any nicotine since his admission and prefers to avoid using the patch if possible. He does voice a desire to quit. We will follow along throughout the course of this patient's stay. Thank you for the consult. CC: Anika Awan, - Home Medications and Allergies Home Medications: Home Medications Medication Instructions Recorded Confirmed Type Atenolol 25 mg PO DAILY 06/17/17 06/18/17 History Metformin HCl 1,000 mg PO BID 06/17/17 06/18/17 History Olmesartan Medoxomil [Benicar] 40 mg PO DAILY 06/17/17 06/18/17 History Omeprazole Magnesium [Prilosec Otc] 40 mg PO DAILY 06/17/17 06/18/17 History Sertraline [Zoloft] 75 mg PO DAILY 06/17/17 06/18/17 History Benzonatate 200 mg PO TID 06/18/17 06/18/17 History Allergies/Adverse Reactions: Allergies Allergy/AdvReac Type Severity Reaction Status Date / Time No Known Allergies Allergy Unverified 06/17/17 13:13 Medical,Surgical,& Family Hx - Medical History Cardio: History of: Hypertension Endocrine: History of: Diabetes Mellitus (NIDDM), Dyslipidemia Renal: History of: Renal Problems (one kidney) Genitourinary: History of: Kidney Stones - Family History Family History: Reports;: Family Diabetes, Family Heart Disease, Family Hypertension - Social History Smoking Status: Current every day smoker Have you smoked in the last 12 months: Yes Time spent discussing smoking cessation with patient: 3 to 10 minutes Frequency of Alcohol Use: Frequently Type of Drug Use: None Marital Status: Lives With:: Spouse Functional capacity: independent ambulation - Constitutional Constitutional: Present: excessive sweating, night sweats. Absent: stops breathing during sleep - EENT Eyes: Absent: blurry vision, loss of vision Nose, mouth and throat: Present: sore throat. Absent: headache(s) - Cardiovascular Cardiovascular: Present: dyspnea. Absent: chest pain at rest, edema - Respiratory Respiratory: Present: cough, dyspnea, wheezing, snoring. Absent: hemoptysis - Gastrointestinal Gastrointestinal: Absent: abdominal pain, nausea, vomiting - Genitourinary Genitourinary: Absent: difficulty urinating, dysuria - Musculoskeletal Musculoskeletal: Absent: back pain, muscle weakness - Neurological Neurological: Absent: abnormal gait, abnormal speech, dizziness, numbness, syncope - Psychiatric Psychiatric: Absent: anxiety, depression - Endocrine Endocrine: Present: heat intolerance - Hematologic/Lymphatic Hematologic/Lymphatic: Absent: easy bleeding, easy bruising Exam - Constitutional Vitals: Period Temp Pulse Resp BP Sys/Murray Pulse Ox Last 24 Hr 96.2 F-98.7 F 101-151 16-20 127-165/76-110 92-97 Exam: General appearance: obese, no acute distress - Head Head exam: Present: normocephalic, atraumatic - Eye Eye exam: Present: EOMI. Absent: conjunctival injection, nystagmus Pupils: Present: JOANIE, normal accommodation - ENT ENT exam: Present: normal exam, normal external ear exam - Neck Neck exam: Present: normal inspection. Absent: lymphadenopathy, tenderness, thyromegaly - Respiratory Respiratory exam: Present: decreased breath sounds bilaterally. Absent: rales, rhonchi - Cardiovascular Cardiovascular exam: Present: tachycardia Absent: carotid bruit, gallop, rubs - GI/Abdominal GI/Abdominal exam: Present: normal bowel sounds. Absent: ascites, distended, mass - Extremities Exam Extremities exam: Present: normal inspection, normal capillary refill. Absent: edema - Back Exam Back exam: Absent: CVA tenderness (L), CVA tenderness (R) - Neurological Exam Neurological exam: Present: alert, oriented X3, CN II-XII intact, reflexes normal - Psychiatric Psychiatric exam: Present: normal affect, normal mood - Skin Skin exam: Present: normal color, warm, dry Results - Labs CBC & BMP: 06/19/17 04:32 06/19/17 04:32 Lab Results: I have reviewed the past 24 hour labs - Diagnostic Findings Procedure: Chest x-ray: image reviewed by me, report reviewed by me (no acute cardiopulmonary findings) <Mike Thurman - Last Filed: 06/19/17 18:49> History of Present Illness - Consult Narrative History of present illness: Patient seen and examined independently of JORGE Hong, agree with history, assessment and plan as documented. Uncontrolled DM, changed to Lispro SSI. Will also add low dose basal insulin while inpatient. Check hemoglobin A1C. Agree with breathing treatments and levaquin for bronchitis. CC: Anika Awan, Exam - Constitutional Vitals: Period Temp Pulse Resp BP Sys/Murray Pulse Ox Last 24 Hr 96.3 F-98.7 F 79-143 16-20 123-165/73-110 92-97 Results - Labs CBC & BMP: 06/19/17 04:32 06/19/17 04:32
[2017-06-19] MEDS ORDERED: GLUCAGON 1 MG VIAL IM PRN (09:15)
[2017-06-19] MEDS ORDERED: DEXTROSE 50% 25 GM/50 ML SYRINGE IV PRN (09:15)
[2017-06-19] MEDS: SERTRALINE 50 MG TABLET PO SCH ×2 (09:19→13:05)
[2017-06-19] MEDS: BENZONATATE 100 MG CAPSULE PO SCH ×5 (09:19→23:07)
[2017-06-19] MEDS: metFORMIN 500 MG TABLET PO SCH ×4 (09:19→23:07)
[2017-06-19] MEDS: OMEGA 3 ACID ETHYL ESTERS 1 GM CAPSULE PO SCH ×4 (09:20→23:07)
[2017-06-19] MEDS: PANTOPRAZOLE 40 MG TABLET PO SCH ×2 (09:20→13:04)
--- NOTE | 2017-06-19 09:33 | EKG Report ---
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
--- NOTE | 2017-06-19 09:52 | Event Note ---
I discussed the case today with Dr. Awan. The patient has gone back into atrial flutter with rapid ventricular response. He has been loaded with amiodarone and we we agree it would be best to perform JERI/cardioversion. I discussed this with the patient to understands and wishes to proceed. Dr. Awan will be performing the procedure later this morning.
[2017-06-19] MEDS: AMIODARONE INJ 450 MG in DEXTROSE 5% 241 ML IV SCH ×2 (10:00→20:15)
[2017-06-19] MEDS: APIXABAN 5 MG TABLET PO SCH ×4 (10:00→23:07)
[2017-06-19] MEDS: INSULIN REGULAR 100 UNIT/ML SUBCUT SCH (10:02)
[2017-06-19] MEDS ORDERED: INSULIN LISPRO 100 UNIT/ML SUBCUT SCH ×2 (11:30)
--- NOTE | 2017-06-19 12:48 | Event Note ---
The patient presented for JERI and cardioversion. When he arrived to the [facility], he was already normal sinus rhythm. He reports having had a coughing or choking spell prior to being transported to the [facility], perhaps this converted him. JERI and cardioversion are canceled.
[2017-06-19] MEDS: INSULIN LISPRO 100 UNIT/ML SUBCUT SCH ×3 (13:03→22:27)
[2017-06-19] MEDS: LEVOFLOXACIN 500 MG TABLET PO SCH (13:04)
[2017-06-19] MEDS: DIGOXIN 0.125 MG TABLET PO SCH (13:05)
--- NOTE | 2017-06-19 16:52 | Cardiology Progress Note ---
Edilberto Yoon Lesley, NP, am scribing for, and in the presence of, Aditya Dockery MD 16:52. Assessment and Plan (1) Atrial fibrillation and flutter Status: Acute Current Visit: Yes (2) Bronchitis Status: Acute Current Visit: Yes (3) Diabetes mellitus Status: Chronic Current Visit: Yes (4) Hyperlipidemia Status: Chronic Current Visit: Yes (5) Hypertension Status: Chronic Current Visit: Yes Cardiology - PN: Subj Interval history: Agricultural Sales Representative: None Summary: Mr. Hernandez is a 52 year old male without a prior cardiac history, with risk factors significant for hypertension, hyperlipidemia, diabetes mellitus, family history of premature coronary artery disease, and tobacco use. The patient has been ill for approximately 1 week with "an upper respiratory infection", strep throat, cough productive of green sputum. He went to primary care provider on Monday (6 days ago) and received a steroid shot in addition to Zithromax. He went today to get a "boost" and was discovered to be extremely tachycardic, and was referred to the emergency room. He did not have awareness of tachycardia or palpitations. He has had some dyspnea this week. He denies any chest discomfort, lower extremity edema, orthopnea, paroxysmal nocturnal dyspnea. He has no history of arrhythmias. He does have a history of kidney stones. He does not have any recent melena, bright red blood per rectum, although he considers himself a "free bleeder". He has had some chills at home. He was admitted with atrial fibrillation/atrial flutter. He has also had elevated blood sugars. June 18, 2017: He remains tachycardic in atrial flutter most of the night, but this morning converted to sinus rhythm. He has since converted back into atrial flutter with a rapid ventricular response. His cough has returned, his breathing is worsening. On physical exam he has some wheezing. His blood sugars continue to be uncontrolled. June 19, 2017: EKG this morning revealed a flutter, rate 146. The patient was planned for JERI and cardioversion, however when he arrived in the [employer] [facility] he converted to normal sinus rhythm after a coughing/choking spell prior to being transported to the lab. This was thought to have possibly converted him to sinus rhythm. The patient is currently on an amiodarone infusion of 0.5 mg/ min and Cardizem infusion at 5 mg/hour. Blood pressures remain within the normal range. Impression and plan: 1. Atrial fibrillation with rapid ventricular response-currently converted to sinus rhythm ,this really may be more of an atrial flutter and it has been difficult to control. Currently on Amiodarone and Cardizem infusions, pt. discovered to have converted back to SR after transporting to [employer] for JERI and cardioversion today. 2. Hypertension-I am going to hold his ARB in favor of using rate controlling agents. 3. Diabetes mellitus-chronic. He is currently uncontrolled. Consult hospitalist service to assist with his pulmonary condition and diabetes mellitus. Hemoglobin A1c 11.6. 4. Hyperlipidemia-chronic. Triglycerides are uncontrolled may be related to his uncontrolled blood sugars as well. We will start treatment for this. 5. Bronchitis-he is now wheezing today, and his cough is returned. Added nebulizer treatment, chest x-ray shows scattered granuloma change bilaterally. We will try to avoid steroids since this may have precipitated his Afib and uncontrolled blood sugars. Added Levaquin. Exam (Progress Note) - Constitutional Vitals: Period Temp Pulse Resp BP Sys/Murray Pulse Ox Last 24 Hr 96.2 F-98.7 F 82-143 16-20 123-165/76-110 92-97 Exam: General: Appears well with no apparent distress. Pleasant and cooperative. Appears comfortable. HEENT: PERRL, normocephalic, atraumatic. Mucous membranes moist. No jaundice noted. Conjunctiva moist and clear, sclerae anicteric. Neck: No JVD/HJR, no thyromegaly or lymphadenopathy noted. No carotid bruit appreciated. Cardiac: Regular rate and rhythm. No murmur rub or gallop. PMI is nondisplaced. Lungs: Clear to auscultation without accessory muscle use to assist the respiratory pattern. Oxygen via nasal cannula 2 L. Abdomen: Soft, bowel sounds normoactive. Nontender and nondistended. No abdominal bruit or thrill noted. No masses noted. Musculoskeletal: No fluid collection. Full range of motion is noted to all extremities. Extremities: No clubbing, cyanosis noted. No edema noted. Upper extremity pulses 2+. Lower extremity pulses 2+. Capillary refill less than 3 seconds. Skin: No unusual lesions or rashes. No skin breakdown appreciated. Neuro: Awake, alert and oriented 3. Moves all extremities well without hemiparesis or paralysis. No essential tremor is appreciated. Result/EKG - Labs CBC & BMP: 06/19/17 04:32 06/19/17 04:32 Lab Results: I have reviewed the past 24 hour labs Labs: Laboratory Results - last 24 hr 06/18/17 06/18/17 06/19/17 16:32 21:05 04:32 WBC 5.5 RBC 4.55 Hgb 13.1 L Hct 39.2 L MCV 86.2 L MCH 29 MCHC 33.4 RDW 13.2 Plt Count 137 MPV 11.0 Neut % (Auto) 51.6 Lymph % (Auto) 36.1 Randall % (Auto) 9.9 Eos % (Auto) 1.1 Baso % (Auto) 0.2 Neut # (Auto) 2.8 Lymph # (Auto) 2.0 Randall # (Auto) 0.5 Eos # (Auto) 0.1 Baso # (Auto) 0.0 Immature Gran % 1.1 Nucleated RBC % 0.0 Immature Gran # 0.06 Nucleated RBCs # 0.00 Immature Plt Fraction 0.0 Sodium Potassium Chloride Carbon Dioxide Anion Gap BUN Creatinine GFR Calculation BUN/Creatinine Ratio Glucose POC Glucose 239 H 299 H Hemoglobin A1c Calculated Osmolality Calcium Magnesium 06/19/17 06/19/17 06/19/17 04:32 04:32 08:45 WBC RBC Hgb Hct MCV MCH MCHC RDW Plt Count MPV Neut % (Auto) Lymph % (Auto) Randall % (Auto) Eos % (Auto) Baso % (Auto) Neut # (Auto) Lymph # (Auto) Randall # (Auto) Eos # (Auto) Baso # (Auto) Immature Gran % Nucleated RBC % Immature Gran # Nucleated RBCs # Immature Plt Fraction Sodium 142 Potassium 3.7 Chloride 107 Carbon Dioxide 26 Anion Gap 12.7 BUN 14 Creatinine 0.80 GFR Calculation 132 BUN/Creatinine Ratio 17.00 Glucose 265 H POC Glucose 271 H Hemoglobin A1c 11.6 H Calculated Osmolality 292.1 Calcium 8.3 L Magnesium 1.7 L 06/19/17 06/19/17 12:06 12:23 WBC RBC Hgb Hct MCV MCH MCHC RDW Plt Count MPV Neut % (Auto) Lymph % (Auto) Randall % (Auto) Eos % (Auto) Baso % (Auto) Neut # (Auto) Lymph # (Auto) Randall # (Auto) Eos # (Auto) Baso # (Auto) Immature Gran % Nucleated RBC % Immature Gran # Nucleated RBCs # Immature Plt Fraction Sodium Potassium Chloride Carbon Dioxide Anion Gap BUN Creatinine GFR Calculation BUN/Creatinine Ratio Glucose POC Glucose 207 H 238 H Hemoglobin A1c Calculated Osmolality Calcium Magnesium - Diagnostic Findings Procedure: Chest x-ray: report reviewed by me - EKG EKG results: interpreted by me, sinus rhythm (previously atrial flutter) Nahed Yoon Michael, MD, personally performed the services described in this documentation, ascribed by Stefany Casanova NP in my presence, and it is both accurate and complete [id number] .
[2017-06-19] MEDS: ASCORBIC ACID 500 MG TABLET PO SCH ×3 (17:00→23:07)
[2017-06-19] MEDS ORDERED: INSULIN GLARGINE 100 UNIT/ML SUBCUT SCH (21:00)
[2017-06-20] MEDS: AMIODARONE INJ 450 MG in DEXTROSE 5% 241 ML IV SCH ×2 (00:23→02:03)
[2017-06-20] MEDS: SODIUM CHLORIDE 0.9% 1,000 ML IV SCH ×2 (00:36→09:34)
[2017-06-20] MEDS: DILTIAZEM INJ 100 MG in SODIUM CHLORIDE 0.9% 100 ML IV SCH ×2 (02:04→13:32)
[2017-06-20 05:02] LABS: Basophils % 0.4 % (0.0-0.8); Eosinophils # 0.1 10*3/uL (0.0-0.87); Eosinophils % 1.2 % (0.00-10.9); Hematocrit 37.7 VOL% (42.0-52.0); Hemoglobin 12.6 GM/DL (14.0-18.0); Immature Granulocytes Absolute 0.05 #; Lymphocytes # 1.5 10*3/uL (1.4-4.0); Lymphocytes % 31.9 % (21.2-54.2); Mean Corpuscular HGB Conc 33.4 GM/DL (32-36); Mean Corpuscular Hemoglobin 29 PG (27-34); Mean Corpuscular Volume 85.5 FL (87-102); Mean Platelet Volume 10.8 FL (9.6-12.0); Monocytes # 0.5 10*3/uL (0.11-0.8); Monocytes % 9.5 % (1.7-12.7); Neutrophils # 2.7 10*3/uL (1.4-7.4); Platelet Count 136 T/CUMM (130-400); Red Blood Count 4.41 MC/CUMM (3.8-5.5); Red Cell Distribution Width 13.2 % (9.3-17.3); White Blood Count 4.8 T/CUMM (4-12)
[2017-06-20 05:35] LABS: Calcium 8.4 MG/DL (8.5-10.1); Magnesium 1.9 MG/DL (1.8-2.4); Osmolality,Calculated 289.1 MOS/KG (273-304); Potassium 4.2 MMOL/L (3.5-5.1)
[2017-06-20] MEDS ORDERED: DILTIAZEM CD 240 MG CAPSULE PO SCH (09:00)
[2017-06-20] MEDS ORDERED: OLMESARTAN 20 MG TABLET PO SCH (09:30)
[2017-06-20] MEDS ORDERED: MAGNESIUM CHLORIDE 64 MG TABLET PO SCH (09:30)
[2017-06-20] MEDS: OMEGA 3 ACID ETHYL ESTERS 1 GM CAPSULE PO SCH (09:32)
[2017-06-20] MEDS: BENZONATATE 100 MG CAPSULE PO SCH ×2 (09:32→16:09)
[2017-06-20] MEDS: metFORMIN 500 MG TABLET PO SCH (09:32)
[2017-06-20] MEDS: PANTOPRAZOLE 40 MG TABLET PO SCH (09:32)
[2017-06-20] MEDS: GEMFIBROZIL 600 MG TABLET PO SCH ×2 (09:33→16:09)
[2017-06-20] MEDS: LEVOFLOXACIN 500 MG TABLET PO SCH ×2 (09:33→13:50)
[2017-06-20] MEDS: APIXABAN 5 MG TABLET PO SCH (09:33)
[2017-06-20] MEDS: ASCORBIC ACID 500 MG TABLET PO SCH (09:33)
[2017-06-20] MEDS: SERTRALINE 50 MG TABLET PO SCH (09:33)
[2017-06-20] MEDS: INSULIN LISPRO 100 UNIT/ML SUBCUT SCH ×3 (09:34→16:10)
[2017-06-20] MEDS ORDERED: AMIODARONE 200 MG TABLET PO SCH (10:00)
[2017-06-20 16:00] VITALS: BP 158/93
--- NOTE | 2017-06-20 16:43 | Hospitalist Progress Note ---
Assessment and Plan (1) Diabetes mellitus Status: Chronic Assessment and plan: Lantus 10 units while inpatient Current Visit: Yes (2) Bronchitis Status: Resolved Assessment and plan: Improved No wheezing. Denies sob Current Visit: Yes Hospitalist: Subjective Interval history: No acute events overnight. Patient started on Lantus last night. Latest FSG slightly better. Patient and his report that he is followed by Dr. Watters closely for his DM. His hemoglobin A1C is 11.6, which he reports is down from approximately 14 at his last appointment. He is currently only on metformin. Will continue Lantus while inpatient. His elevated A1C qualifies him for insulin , but since patient is eating healthy, losing weight and being followed closely by his pcp, I will not start him on insulin outpatient. He has also had a reduction in his A1C. He will need to follow-up with his pcp in 2 weeks. Exam - Constitutional Vitals: Period Temp Pulse Resp BP Sys/Murray Pulse Ox Last 24 Hr 97.0 F-98.1 F 74-86 18-20 138-185/85-115 93-97 General appearance: over weight - Head Head exam: Present: normocephalic, atraumatic - Eye Eye exam: Present: EOMI Pupils: Present: JOANIE - ENT ENT exam: Present: normal exam - Neck Neck exam: Present: normal inspection - Respiratory Respiratory exam: Present: clear to auscultation bilaterally. Absent: rhonchi, wheezes - Cardiovascular Cardiovascular exam: Present: regular rate and rhythm - GI/Abdominal GI/Abdominal exam: Present: normal bowel sounds, soft. Absent: tenderness, rebound - Extremities Exam Extremities exam: Present: normal inspection - Back Exam Back exam: Present: normal inspection - Neurological Exam Neurological exam: Present: alert, oriented X3 - Psychiatric Psychiatric exam: Present: normal affect, normal mood - Skin Skin exam: Present: warm, intact Results - Labs CBC & BMP: 06/20/17 04:19 06/20/17 04:19
--- NOTE | 2017-06-20 16:51 | Discharge Summary ---
Edilberto Yoon Lesley, MEREDITH, am scribing for, and in the presence of, Aditya Dockery MD 16:51. Hospital Course - Hospital Course Hospital Course: Teletypewriter Operator: Dr. Awan (new) SUMMARY: Mr. Hernandez is a 52 year old male without a prior cardiac history, with risk factors significant for hypertension, hyperlipidemia, diabetes mellitus, family history of premature coronary artery disease, and tobacco use. Patient has been ill for approximately a week with an upper respiratory infection, strep throat, productive cough of green sputum he was treated with Zithromax and a steroid shot. He went back to see PCP for a "boost" and was found to be extremely tachycardic and referred to the emergency room. He did not have awareness of tachycardia palpitations he has had some dyspnea this week. The patient was found to be in Afib per EKG. the patient was started on amiodarone infusion as well as Cardizem infusion. He converted to sinus rhythm for a short time went back into atrial flutter with rate in the 140s. The patient was scheduled for a JERI and cardioversion, but was found to have converted to sinus rhythm upon arrival to the [facility]. The patient has uncontrolled diabetes and uncontrolled triglycerides. Hemoglobin A1c is 11.6. The patient is converted to oral antiarrhythmic and started on Eliquis. The patient will follow up in [address] Awan with labs and EKG prior. DISCHARGE MEDICATIONS: Amiodarone 400 mg p.o. twice daily Eliquis 5 mg p.o. twice daily Ascorbic acid 1000 mg p.o. twice daily Diltiazem CD 300 mg p.o. daily Gemfibrozil 600 mg p.o. twice daily before meals Chloride 64 mg p.o. twice daily Metformin 1000 mg p.o. twice daily Benicar 40 mg p.o. daily [place]-3 acid 2 g p.o. twice daily Zoloft 75 mg p.o. daily Tresiba U200 Flextouch insulin pen 15 units daily 1 box of pen needles 31 gauge 5/16" - Time spent with patient Time with patient DS: Greater than 30 minutes (Record review, assessment and documentation) Diagnosis - Discharge Diagnosis (1) Atrial fibrillation and flutter Status: Resolved (2) Bronchitis Status: Resolved (3) Diabetes mellitus Status: Chronic (4) Hyperlipidemia Status: Chronic (5) Hypertension Status: Chronic Discharge Plan - Discharge Data Condition at Discharge: Stable Discharge Diet: heart healthy Activity: resume usual activities as tolerated Hygiene: no restrictions Weight Bearing at Discharge: full weight bearing Driving: no restrictions Contact your physician if you experience:: Shortness of breath - Discharge Medications New Amiodarone Tab [Cordarone Tab] 400 mg PO BID #60 tablet Apixaban [Eliquis] 5 mg PO BID #60 tablet Ascorbic Acid Tab [Vitamin C Tab] 1,000 mg PO BID #60 tablet Magnesium Chloride [Slow Mag] 64 mg PO BID #60 tablet [place] 3 Acid Ethyl Esters [Lovaza] 2 gm PO BID #60 capsule Diltiazem Cd Cap [Cardizem CD] 300 mg PO DAILY #60 capsule Continue Omeprazole Magnesium [Prilosec Otc] 40 mg PO DAILY Metformin HCl 1,000 mg PO BID Olmesartan Medoxomil [Benicar] 40 mg PO DAILY #30 Sertraline [Zoloft] 75 mg PO DAILY Benzonatate 200 mg PO TID Discontinued Atenolol 25 mg PO DAILY - Follow Up or Referral - Forms/Instructions Exam - Constitutional Vitals: Period Temp Pulse Resp BP Sys/Murray Pulse Ox Last 24 Hr 97.0 F-98.2 F 74-90 18-20 123-185/73-115 93-97 Exam: General: Appears well with no apparent distress. Pleasant and cooperative. Appears comfortable. HEENT: PERRL, normocephalic, atraumatic. Mucous membranes moist. No jaundice noted. Conjunctiva moist and clear, sclerae anicteric. Neck: No JVD/HJR, no thyromegaly or lymphadenopathy noted. No carotid bruit appreciated. Cardiac: Regular rate and rhythm. No murmur rub or gallop. PMI is nondisplaced. Lungs: Clear to auscultation without accessory muscle use to assist the respiratory pattern. Oxygen via nasal cannula 2 L. Abdomen: Soft, bowel sounds normoactive. Nontender and nondistended. No abdominal bruit or thrill noted. No masses noted. Musculoskeletal: No fluid collection. Full range of motion is noted to all extremities. Extremities: No clubbing, cyanosis noted. No edema noted. Upper extremity pulses 2+. Lower extremity pulses 2+. Capillary refill less than 3 seconds. Skin: No unusual lesions or rashes. No skin breakdown appreciated. Neuro: Awake, alert and oriented 3. Moves all extremities well without hemiparesis or paralysis. No essential tremor is appreciated. Discharge Results Labs on day of discharge: Labs from last 24 hours 06/20/17 06/20/17 06/20/17 08:09 04:19 04:19 WBC 4.8 RBC 4.41 Hgb 12.6 L Hct 37.7 L MCV 85.5 L MCH 29 MCHC 33.4 RDW 13.2 Plt Count 136 MPV 10.8 Neut % (Auto) 56.0 Lymph % (Auto) 31.9 [place] % (Auto) 9.5 Eos % (Auto) 1.2 Baso % (Auto) 0.4 Neut # (Auto) 2.7 Lymph # (Auto) 1.5 [place] # (Auto) 0.5 Eos # (Auto) 0.1 Baso # (Auto) 0.0 Immature Gran % 1.0 Nucleated RBC % 0.0 Immature Gran # 0.05 Nucleated RBCs # 0.00 Immature Plt Fraction 0.0 Sodium 142 Potassium 4.2 Chloride 108 H Carbon Dioxide 28 Anion Gap 10.2 BUN 12 Creatinine 0.80 GFR Calculation 132 BUN/Creatinine Ratio 15.00 Glucose 230 H POC Glucose 262 H Hemoglobin A1c Calculated Osmolality 289.1 Calcium 8.4 L Magnesium 1.9 06/19/17 06/19/17 06/19/17 19:16 15:19 12:23 WBC RBC Hgb Hct MCV MCH MCHC RDW Plt Count MPV Neut % (Auto) Lymph % (Auto) [place] % (Auto) Eos % (Auto) Baso % (Auto) Neut # (Auto) Lymph # (Auto) [place] # (Auto) Eos # (Auto) Baso # (Auto) Immature Gran % Nucleated RBC % Immature Gran # Nucleated RBCs # Immature Plt Fraction Sodium Potassium Chloride Carbon Dioxide Anion Gap BUN Creatinine GFR Calculation BUN/Creatinine Ratio Glucose POC Glucose 249 H 263 H 238 H Hemoglobin A1c Calculated Osmolality Calcium Magnesium 06/19/17 06/19/17 12:06 04:32 WBC RBC Hgb Hct MCV MCH MCHC RDW Plt Count MPV Neut % (Auto) Lymph % (Auto) [place] % (Auto) Eos % (Auto) Baso % (Auto) Neut # (Auto) Lymph # (Auto) [place] # (Auto) Eos # (Auto) Baso # (Auto) Immature Gran % Nucleated RBC % Immature Gran # Nucleated RBCs # Immature Plt Fraction Sodium Potassium Chloride Carbon Dioxide Anion Gap BUN Creatinine GFR Calculation BUN/Creatinine Ratio Glucose POC Glucose 207 H Hemoglobin A1c 11.6 H Calculated Osmolality Calcium Magnesium DS: Provider Consults: 06/17/17 16:39 Consult to [facility], Educator [CONS] Routine Reason for Service Director: Diabetes Education 06/18/17 13:32 Consult to Physician [CONS] Routine Comment: uncontrolled DM, bronchitis Consulting Provider: Mike Thurman When should Consulting Provider be notified: In am Consult to Specialist Group: Hospitalist When should Consulting Provider be notified: Now Person Notified: Skip Date Notified: 06/19/17 Time Notified: 08:15 Expected date of discharge: 06/20/17 Nahed Yoon Michael, MD, personally performed the services described in this documentation, ascribed by Stefany Casanova NP in my presence, and it is both accurate and complete [id number] .
[2017-06-21] MEDS ORDERED: DILTIAZEM CD 300 MG CAPSULE PO SCH (09:00)
== END 2017-06-20 18:25 | disposition home or self-care (01) | DRG 309 ==
LOC: N.ED 13:04 → N.EDINP 15:24 → N.TELEN 15:30
PROVIDERS: ADMIT Internal Medicine Cardiovascular Disease; ATTEND Internal Medicine Cardiovascular Disease